=== PATIENT | female | born 1970 | race Caucasian/White ===

== ENCOUNTER 2021-09-22 20:51 | Observation (INO) ==
[2021-09-22] MEDS ORDERED: ZOFRAN 4 MG/2 ML IVP STA (21:05)
[2021-09-22] MEDS ORDERED: NITROSTAT SL STA ×2 (21:05→21:35)
[2021-09-22] MEDS ORDERED: GI COCKTAIL PO ONE (21:05)
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
[2021-09-22 21:25] LABS: BASOPHILS # (AUTO) 0.1 K/uL (0-0.2); BASOPHILS % (AUTO) 0.7 % (0.0-3.0); EOSINOPHILS # (AUTO) 0.3 K/ul (0.0-0.7); EOSINOPHILS % (AUTO) 2.3 % (0.0-7.0); HEMATOCRIT 41.1 % (37.0-47.0); HEMOGLOBIN 13.6 g/dl (12.0-16.0); IMMATURE GRANULOCYTE % (AUTO) 0.3 % (0.0-5.0); LYMPHOCYTES # (AUTO) 1.4 K/uL (0.60-3.4); LYMPHOCYTES % (AUTO) 12.6 (10.0-50.0); MEAN CORPUSCULAR HEMOGLOBIN 29.1 pg (27.0-31.0); MEAN CORPUSCULAR HGB CONC 33.1 (31.8-35.4); MEAN CORPUSCULAR VOLUME 87.8 fl (81.0-99.0); MONOCYTES # (AUTO) 0.7 K/uL (0.4-2.0); MONOCYTES % (AUTO) 6.4 (0-10); NEUTROPHILS # (AUTO) 8.9 K/ul (2.0-6.9); NEUTROPHILS % (AUTO) 77.7 % (42.2-75.2); PLATELET COUNT 273 10^3/uL (140-440); RED BLOOD COUNT 4.68 10^6/ul (4.20-5.40); WHITE BLOOD COUNT 11.47 K/ul (4.6-10.2)
[2021-09-22 21:35] LABS: ALKALINE PHOSPHATASE 110.4 U/L (38-126); BILIRUBIN,TOTAL 0.46 mg/dL (0.2-1.3); BLOOD UREA NITROGEN 13.8 mg/dL (7-17); CALCIUM 9.44 mg/dL (8.4-10.2); CARBON DIOXIDE 30.5 mmol/L (22-30.0); CHLORIDE 98.5 mmol/L (98-107); CREATINE KINASE 64.8 U/L (30-135); CREATININE 1.06 mg/dL (0.60-1.30); GLUCOSE 137.6 mg/dL (74-106); POTASSIUM 4.24 mmol/L (3.5-5.1); SODIUM 138.4 mmol/L (134.5-145); TOTAL PROTEIN 8.09 g/dL (6.3-8.2)
[2021-09-22 21:47] LABS: TROPONIN I < 0.012 ng/ml (0.0000-0.120)
[2021-09-22] MEDS: SODIUM CHLORIDE 1,000 ML IV STA (21:47)
--- NOTE | 2021-09-22 22:04 | DI ---
EXAM: Frontal view of the chest HISTORY: Chest pain COMPARISON: 12/31/2013 FINDINGS: Elevation of the right hemidiaphragm is identified. There is now a prominent right basilar opacity. No pneumothorax is seen. The cardiomediastinal silhouette is stable. Operative changes of the thor acic spine are identified. IMPRESSION: Prominent right basilar opacity which could represent a combination of consolidation, atelectasis and possibly pleural effusion. CT could be considered for more definitive evaluation.
--- NOTE | 2021-09-22 23:37 | CT ---
EXAM: CT chest without intravenous contrast 09/22/2021. Sagittal and coronal reformatted images obt ained HISTORY: Shortness of breath COMPARISON: 09/22/2021 FINDINGS: The heart size appears within normal limits. No pericardial effusion. Elevation of the r ight diaphragm with overlying compressive atelectasis. Subsegmental atelectasis within the right middle and left lower lobe. No pleural effusion. No pneumothorax. No pathologic appearing lymphadenopathy. Small hiata l hernia. Hepatic steatosis post cholecystecto my. Post kyphoplasty change of 88. Posterior fusion at T7-T9. IMPRESSION: 1. Elevation of the right diaphragm with compressive atelectasis. 2. Multifocal subsegmental atelectasis. 3. Hepatic steatosis post cholecystectomy. 4. Small hiatal hernia. All CT scans are performed using dose optimization techniques as appropriate to the performed exam an d include at least one of the following: Automated exposure control, adjustment of the mA and/or kV according t o size, and the use of iterative reconstruction technique.
[2021-09-23] MEDS ORDERED: NITROSTAT SL PRN (00:32)
[2021-09-23] MEDS ORDERED: TYLENOL PO PRN (00:32)
[2021-09-23] MEDS ORDERED: ATROPINE SULFATE PFS IVP PRN (00:32)
[2021-09-23] MEDS ORDERED: LOVENOX SUBCUT ONE (00:40)
[2021-09-23] MEDS: SODIUM CHLORIDE 1,000 ML IV STA (01:33)
[2021-09-23 01:55] VITALS: BMI 40.9
[2021-09-23] MEDS: MORPHINE 2 MG/ML VIAL IVP PRN ×5 (02:04→23:35)
[2021-09-23 05:41] LABS: BASOPHILS # (AUTO) 0.1 K/uL (0-0.2); BASOPHILS % (AUTO) 1.1 % (0.0-3.0); EOSINOPHILS # (AUTO) 0.3 K/ul (0.0-0.7); EOSINOPHILS % (AUTO) 3.3 % (0.0-7.0); HEMATOCRIT 40.6 % (37.0-47.0); HEMOGLOBIN 12.8 g/dl (12.0-16.0); IMMATURE GRANULOCYTE # (AUTO) 0.1 (0.0-1.0); IMMATURE GRANULOCYTE % (AUTO) 0.6 % (0.0-5.0); LYMPHOCYTES # (AUTO) 1.2 K/uL (0.60-3.4); LYMPHOCYTES % (AUTO) 13.9 (10.0-50.0); MEAN CORPUSCULAR HEMOGLOBIN 29.2 pg (27.0-31.0); MEAN CORPUSCULAR HGB CONC 31.5 (31.8-35.4); MEAN CORPUSCULAR VOLUME 92.5 fl (81.0-99.0); MONOCYTES # (AUTO) 0.6 K/uL (0.4-2.0); MONOCYTES % (AUTO) 7.4 (0-10); NEUTROPHILS # (AUTO) 6.2 K/ul (2.0-6.9); NEUTROPHILS % (AUTO) 73.7 % (42.2-75.2); PLATELET COUNT 228 10^3/uL (140-440); RDW COEFFICIENT OF VARIATION 14.1 % (11.6-14.8); RED BLOOD COUNT 4.39 10^6/ul (4.20-5.40); WHITE BLOOD COUNT 8.43 K/ul (4.6-10.2)
[2021-09-23 05:53] LABS: ALANINE AMINOTRANSFERASE 34.7 U/L (0-35); ALBUMIN 4.03 g/dL (3.5-5.0); ALKALINE PHOSPHATASE 98.1 U/L (38-126); BILIRUBIN,TOTAL 0.48 mg/dL (0.2-1.3); BLOOD UREA NITROGEN 12.8 mg/dL (7-17); CALCIUM 8.57 mg/dL (8.4-10.2); CARBON DIOXIDE 24.9 mmol/L (22-30.0); CHLORIDE 102.9 mmol/L (98-107); CREATINE KINASE 82.8 U/L (30-135); CREATININE 0.92 mg/dL (0.60-1.30); GLUCOSE 112.2 mg/dL (74-106); POTASSIUM 3.66 mmol/L (3.5-5.1); SODIUM 135.8 mmol/L (134.5-145); TOTAL PROTEIN 7.18 g/dL (6.3-8.2)
[2021-09-23 06:05] LABS: TROPONIN I < 0.012 ng/ml (0.0000-0.120)
[2021-09-23] MEDS: ROBAXIN PO SCH ×3 (08:19→20:37)
[2021-09-23] MEDS: ASPIRIN EC PO SCH (08:19)
[2021-09-23] MEDS: NEURONTIN PO SCH ×3 (08:20→20:37)
[2021-09-23] MEDS: SYNTHROID PO SCH (08:27)
[2021-09-23] MEDS ORDERED: SYNTHROID PO SCH (09:00)
[2021-09-23 09:24] LABS: CREATINE KINASE 89.5 U/L (30-135)
[2021-09-23 09:48] LABS: TROPONIN I < 0.012 ng/ml (0.0000-0.120)
--- NOTE | 2021-09-23 09:59 | PCM.CONS ---
CONSULTING PROVIDER: Dr. MARILIA PALACIO ATTENDING PROVIDER: Dr. JAKY PEREZ MD DATE OF SERVICE: 09/23/21 SUBJECTIVE: This 51 year old /WHITE F was hospitalized 09/23/21. She is was seen on consultation because of chest pain. The patient said feels like little man like me sitting on her chest since 3 this morning. Associated shortness of breath. Patient doesn't have history of coronary artery disease, cath done [place] [address] Antonio which was negative for significant blocked arteries. The patient has lupus and was advised to be careful with angina type of symptoms mentioned by Dr. White, she hasn't seen him since 2019. Does have regular primary says being see physician by telehealth. Just moved into area a week ago. She is familiar with this area. So far EKG and Telemetry is negative. REVIEW OF SYSTEMS: CONSTITUTIONAL: No night sweats. No fatigue, malaise, lethargy. No fever or chills. HEENT: Eyes: No visual changes. No eye pain. No eye discharge. ENT: No runny nose. No epistaxis. No sinus pain. No odynophagia. No congestion. RESPIRATORY: No cough, no congestion. No hemoptysis. No shortness of breath. CARDIOVASCULAR: No angina symptoms. No CHF symptoms. No atypical chest pain for CAD. No palpitations. No orthopnea. GASTROINTESTINAL: No abdominal pain. No nausea or vomiting. No diarrhea or constipation. No hematemesis. No hematochezia. GENITOURINARY: No urgency. No frequency. No dysuria. No hematuria. No obstructive symptoms. No discharge. No pain. No significant abnormal bleeding. MUSCULOSKELETAL: No musculoskeletal pain; no joint swelling. NEUROLOGICAL: Awake, alert, oriented to time, place and person. No headache. No neck pain. No syncope. No seizures. No dizziness. PSYCHIATRIC: Not anxious. No depression. No suicidal thoughts. No homicidal thoughts. SKIN: No rash. No lesions. No wounds. ENDOCRINE: No unexplained weight loss. No weight gain. HEMATOLOGIC/LYMPHATIC: No anemia. No purpura. No petechiae. No prolonged or excessive bleeding. No palpable lymph nodes. PHYSICAL EXAMINATION: GENERAL: The patient is awake, alert and oriented, sitting in bed in no distress. VITAL SIGNS: Temperature 97.3 F, Pulse 83, Respiratory Rate 18, BP 159/97, Pulse Ox 97% HEENT: Head normocephalic, atraumatic. Eyes: Extraocular muscles are intact. Pupils are equal, round and reactive to light and accommodation. Ears: No lesions. Nose appeared normal. Throat: No exudate or erythema. NECK: Supple. No JVD, no carotid bruit. No lymphadenopathy or thyromegaly. LUNGS: Clear to auscultation. Percussion note normal. Chest symmetrical. HEART: S1, S2, no S3. No murmurs. No cyanosis or clubbing. No ascites. Pulses: Dorsalis pedis and posterior tibial pulses +1 to +2 both sides. No chest pain at present time. ABDOMEN: Soft. Non-tender. Bowel sounds active. No CVA tenderness. No mass felt. EXTREMITIES: No edema. Full range of motion of all extremities, equal. NEUROLOGIC: No focal deficit. Cranial nerves II through XII are grossly intact. No headache, no double vision or headache. SKIN: Warm and dry. Intact. Turgor-normal. LYMPHATIC: No palpable lymph nodes/no lymphedema. MUSCULOSKELETAL: Normal joints with no swelling. Muscle tone is normal. LAB REVIEW: 09/23/21 05:32 09/23/21 05:32 09/23/21 05:32: Sodium 135.8, Potassium 3.66, Chloride 102.9, Carbon Dioxide 24.9, Anion Gap 11.66, BUN 12.8, Creatinine 0.92, Estimated GFR (MDRD) 64.00, BUN/Creatinine Ratio 13.91, Glucose 112.2 H, Calcium 8.57, Total Bilirubin 0.48, AST 27.0, ALT 34.7, Alkaline Phosphatase 98.1, Total Creatine Kinase 82.8, Troponin I < 0.012, Total Protein 7.18, Albumin 4.03, Globulin 3.15, Albumin/Globulin Ratio 1.27 09/23/21 05:32: WBC 8.43, RBC 4.39, Hgb 12.8, Hct 40.6, MCV 92.5, MCH 29.2, MCHC 31.5 L, RDW Coeff of Tc 14.1, Plt Count 228, Immature Gran % (Auto) 0.6, Neut % (Auto) 73.7, Lymph % (Auto) 13.9, [place] % (Auto) 7.4, Eos % (Auto) 3.3, Baso % (Auto) 1.1, Neut # (Auto) 6.2, Lymph # (Auto) 1.2, [place] # (Auto) 0.6, Eos # (Auto) 0.3, Baso # (Auto) 0.1, Immature Gran # (Auto) 0.1 09/23/21 01:00: SARS-CoV-2 Ag (Rapid) Negative 09/22/21 23:21: Troponin I < 0.012 09/22/21 21:18: Sodium 138.4, Potassium 4.24, Chloride 98.5, Carbon Dioxide 30.5 H, Anion Gap 13.64, BUN 13.8, Creatinine 1.06, Estimated GFR (MDRD) 54.00, BUN/Creatinine Ratio 13.01, Glucose 137.6 H, Calcium 9.44, Total Bilirubin 0.46, AST 29.0, ALT 38.0 H, Alkaline Phosphatase 110.4, Total Creatine Kinase 64.8, Troponin I < 0.012, Total Protein 8.09, Albumin 4.60, Globulin 3.49, Albumin/Globulin Ratio 1.31 09/22/21 21:18: WBC 11.47 H, RBC 4.68, Hgb 13.6, Hct 41.1, MCV 87.8, MCH 29.1, MCHC 33.1, RDW Coeff of Tc 14.0, Plt Count 273, Immature Gran % (Auto) 0.3, Neut % (Auto) 77.7 H, Lymph % (Auto) 12.6, [place] % (Auto) 6.4, Eos % (Auto) 2.3, Baso % (Auto) 0.7, Neut # (Auto) 8.9 H, Lymph # (Auto) 1.4, [place] # (Auto) 0.7, Eos # (Auto) 0.3, Baso # (Auto) 0.1, Immature Gran # (Auto) 0.0 ASSESSMENT: 1. Chest pain by history consistent with coronary insufficiency so fare negative cardiac markers, EKG and telemetry 2. Obesity 3. History of hypertension 4. Lipid profile unknown 5. Hypothyroidism Please see below. RECOMMENDATIONS/PLAN: 1. The patient is taking thyroid supplements only medication she is taking as she is unable to afford. Off all other medications at this time. 2. Echo 3. CT angiogram to rule out PE 4. Dobutamine stress echo 5. Will get cath report from [facility] from Dr. Prakash. Plan and coordination of the patient's care discussed in the presence of Sail Cutter and Nurse. CONDITION: Stable at present time. Case discussed with hospitalist. SCRIBED BY: CARLOS VARGAS Appeals Board Referee scribed while in presence of service performed by Dr. MARILIA PALACIO on 09/23/21 ([id number])
[2021-09-23 10:17] LABS: CHOLESTEROL 256.3 mg/dL (0-200); HDL CHOLESTEROL 26.7 mg/dL (35-80); TRIGLYCERIDES 506.7 mg/dL (0-150)
[2021-09-23 10:42] LABS: ERYTHROCYTE SEDIMENTATION RATE 26 mm/hr (0-20)
--- NOTE | 2021-09-23 10:48 | PCM.PROG ---
Date Seen by Provider: 09/23/21 Time Seen by Provider: 10:42 Subjective: pt continues off and on chest pain relieved by SL nitro, gi cocktail w/o effect, awaits Dr Trevino Cardiology eval for stress test and echo, labs pending for pt/ptt and ddimer, hx dye allergy, lupus, home oxygen prn, obesity, asthma, daily aspirin, and covid vaccine, +cad family hx, no hx smoking or htn Objective: Vitals: T=97.3 F, P=83, R=18, VO=686/97, SPO2=97% HEENT: []conjunctiva clear Neck: []supple Lungs: [] clear to aus CVS: []RRR Abdomen: []nondistended Extremities: []santos Neurological: []alert w/ fluent speech Skin: []pink Lab/Tests/Diagnostic Imaging: []serial troponins not elevated, chest ct shows atelec Plan: monitor chest pain, eval labs and echo and stress test care to Dr Springer at 19:00
[2021-09-23 11:12] LABS: PARTIAL THROMBOPLASTIN TIME 27.1 SEC (23.9-40.0); PROTHROMBIN TIME 10.1 SEC (9.3-11.0)
[2021-09-23] MEDS ORDERED: DOBUTAMINE 500 MG-D5W 250 ML 500 MG/250 ML BAG IV ONE (11:42)
[2021-09-23] MEDS ORDERED: DOBUTAMINE 500 MG-D5W 250 ML 500 MG/250 ML BAG IV SCH (12:13)
[2021-09-23] MEDS ORDERED: DECADRON IM ONE (13:23)
--- NOTE | 2021-09-23 13:31 | DOBSTECHO ---
Date of Test: 09/23/2021 Ordering Physician: HOSPITALIST--CHRIS Smoking History: NONE Reason for Examination: CHEST PAIN, HEART CATH 2017, MITRAL VALVE STENOSIS Current Medications: SYNTHROID, NEURONTIN, ROBAXIN Height: 68" Weight: 269 LBS Target Heart Rate: 142/168 S-T Segment Stage Time HR BPM BP MMHG Rhythm +/- Elevation Depression Symptoms Control Sitting 76 118/72 SR X NONE Dobutamine 250mg/D5W 5mcg/KG/mn 10mcg/KG/mn 3" 96 132/68 SR X NONE 15mcg/KG/mn 1:02 129 SR X POST NECK PAIN 20mcg/KG/mn 25mcg/KG/mn 30mcg/KG/mn 35mcg/KG/mn 40mcg/KG/mn 3" MIN POST INFUSION 116 138/54 SR X PAIN ALMOST SUBSIDED 6" MIN POST INFUSION 15 95 84 118/60 120/70 SR SR X X NONE NONE DURATION OF INFUSION 4:02 MAXIMUM HEART RATE REACHED 129 BPM 92% OXYGEN SATURATION ON ROOM AIR Interpretation: 1. NO EVIDENCE OF ISCHEMIA BY ST-T WAVE FROM HEART RATE 76 BPM AT REST TO 129 BPM WITH DOBUTAMINE INFUSION 2. POST NECK PAIN LIKE MUSCLE SPASM WHICH SUBSIDED WITH GOOD SUPPORT TO THE NECK WITH PILLOW 3. NO CHEST PAIN OR DISCOMFORT OR SWEATS OR SHORTNESS OF BREATH 4. NO ARRHYTHMIAS NORMAL LEFT VENTRICLE CONTRACTILITY--RESTING AND WITH DOBUTAMINE INFUSION MTDD
--- NOTE | 2021-09-23 13:34 | ECHOSTRESS ---
Date of Exam: 09/23/2021 Ordering Physician: HOSPITALIST- DR. PEREZ Reason for Echo: CHEST PAIN, DOBUTAMINE STRESS TEST--NO ISCHEMIA M-Mode Normal Adult Results LV Dimensions Normal Adult Results AoV Opening excursions >1.6 LVEDD-base- 3.5-5.8 Ao root dimensions 2.0-3.7 LVESD-base- 3.1-4.6 L. Atrium dimensions 1.9-3.8 Post. Wall thickness 0.8-1.1 IV septum (thickness) 0.7-1.2 Post. Wall excursion 0.72-1.3 Septal motion Systolic motion R. Ventricular cavity 1.5-2.0 LVEF 60% Paradoxical septal wall motion 2-D: NORMAL LEFT VENTRICLE CONTRACTILITY--RESTING AND WITH DOBUTAMINE INFUSION M-MODE: MV: AV: TV: PV: CHAMBER SIZE: WALL MOTION: NORMAL LEFT VENTRICLE CONTRACTILITY--RESTING AND WITH DOBUTAMINE INFUSION PERICARDIUM: INTERPRETATION: 1. NORMAL LEFT VENTRICLE CONTRACTILITY--RESTING AND WITH DOBUTAMINE INFUSION MTDD
[2021-09-23] MEDS: COREG PO SCH ×2 (13:35→17:16)
[2021-09-23] MEDS: PROTONIX PO SCH ×2 (13:35→17:16)
--- NOTE | 2021-09-23 13:39 | ECHO2D ---
Date of Exam: 09/23/2021 Ordering Physician: HOSPITALIST--DR. PEREZ Room #: OP Reason for Echo: CHEST PAIN M-Mode Normal Adult Results LV Dimensions Normal Adult Results AoV Opening excursions >1.6 >1.6 LVEDD-base- 3.5-5.8 4.7 Ao root dimensions 2.0-3.7 3.6 LVESD-base- 3.1-4.6 L. Atrium dimensions 1.9-3.8 4.4 Post. Wall thickness 0.8-1.1 1.2 IV septum (thickness) 0.7-1.2 1.2 Post. Wall excursion 0.72-1.3 NORMAL Septal motion NORMAL Systolic motion R. Ventricular cavity 1.5-2.0 NORMAL LVEF 60% 56% Paradoxical septal wall motion NORMAL 2-D : 2-D M Mode Echocardiogram was performed using apical four chamber and left parasternal long and short axis views. Mitral, tricuspid and aortic valves appear to be normal. Contractility of the left ventricle seems to be normal, so is the cavity size. ENLARGED LEFT ATRIAL CAVITY SIZE. Aortic root appears to be normal. There is no pericardial effusion. There is no thrombus noted in the left ventricle or left atrial cavity. M-MODE: MV: NORMAL AV: NORMAL TV: NORMAL PV: CHAMBER SIZE: ENLARGED LEFT ATRIAL CAVITY WALL MOTION: NORMAL PERICARDIUM: NORMAL INTERPRETATION: 1. LEFT VENTRICLE HYPERTROPHY WITH ENLARGED LEFT ATRIAL CAVITY 2. NORMAL LEFT VENTRICLE CONTRACTILITY 3. NORMAL VALVES MTDD
[2021-09-23] MEDS: NYSTOP POWDER TP SCH (20:53)
[2021-09-23 21:21] LABS: BILIRUBIN,URINE Negative (NEGATIVE); CLARITY,URINE Clear (CLEAR); COLOR,URINE Yellow (YELLOW); GLUCOSE, URINE (UA) Negative (NEGATIVE); KETONES,URINE Negative (NEGATIVE); LEUKOCYTE ESTERASE ,URINE Negative (NEGATIVE); NITRITE,URINE Negative (NEGATIVE); PROTEIN,URINE Negative (NEGATIVE); URINE, BLOOD Negative (NEGATIVE); UROBILINOGEN,URINE 0.2 (0.2)
[2021-09-24] MEDS ORDERED: ATIVAN PO STA (00:58)
[2021-09-24] MEDS: MORPHINE 2 MG/ML VIAL IVP PRN ×2 (04:55→08:48)
[2021-09-24 05:20] LABS: BASOPHILS # (AUTO) 0.1 K/uL (0-0.2); BASOPHILS % (AUTO) 0.7 % (0.0-3.0); EOSINOPHILS % (AUTO) 0.3 % (0.0-7.0); HEMATOCRIT 37.3 % (37.0-47.0); HEMOGLOBIN 12.3 g/dl (12.0-16.0); IMMATURE GRANULOCYTE % (AUTO) 0.5 % (0.0-5.0); LYMPHOCYTES # (AUTO) 0.8 K/uL (0.60-3.4); LYMPHOCYTES % (AUTO) 9.5 (10.0-50.0); MEAN CORPUSCULAR HEMOGLOBIN 29.6 pg (27.0-31.0); MEAN CORPUSCULAR VOLUME 89.7 fl (81.0-99.0); MONOCYTES # (AUTO) 0.5 K/uL (0.4-2.0); MONOCYTES % (AUTO) 5.5 (0-10); NEUTROPHILS # (AUTO) 7.2 K/ul (2.0-6.9); NEUTROPHILS % (AUTO) 83.5 % (42.2-75.2); PLATELET COUNT 241 10^3/uL (140-440); RDW COEFFICIENT OF VARIATION 13.8 % (11.6-14.8); RED BLOOD COUNT 4.16 10^6/ul (4.20-5.40); WHITE BLOOD COUNT 8.66 K/ul (4.6-10.2)
[2021-09-24] MEDS: PROTONIX PO SCH ×2 (05:31→17:14)
[2021-09-24] MEDS: SYNTHROID PO SCH (05:32)
[2021-09-24 05:33] LABS: ALANINE AMINOTRANSFERASE 42.4 U/L (0-35); ALBUMIN 4.11 g/dL (3.5-5.0); ASPARTATE AMINO TRANSFERASE 31.8 U/L (14-36); BILIRUBIN,TOTAL 0.48 mg/dL (0.2-1.3); CALCIUM 9.07 mg/dL (8.4-10.2); CARBON DIOXIDE 28.7 mmol/L (22-30.0); CHLORIDE 102.1 mmol/L (98-107); CREATININE 0.78 mg/dL (0.60-1.30); GLUCOSE 137.7 mg/dL (74-106); POTASSIUM 4.9 mmol/L (3.5-5.1); SODIUM 136.6 mmol/L (134.5-145); TOTAL PROTEIN 7.2 g/dL (6.3-8.2)
[2021-09-24] MEDS: NYSTOP POWDER TP SCH ×2 (08:36→21:51)
[2021-09-24] MEDS: ASPIRIN EC PO SCH (08:36)
[2021-09-24] MEDS: NEURONTIN PO SCH ×3 (08:37→21:51)
[2021-09-24] MEDS: COREG PO SCH ×2 (08:37→17:14)
[2021-09-24] MEDS: ROBAXIN PO SCH ×3 (08:37→21:50)
[2021-09-24] MEDS ORDERED: ULTRAM PO SCH (10:00)
[2021-09-24] MEDS ORDERED: ULTRAM PO PRN (10:02)
--- NOTE | 2021-09-24 11:51 | PCM.PROG ---
Date Seen by Provider: 09/24/21 Time Seen by Provider: 11:00 Subjective: Resting in bed watching TV. She reports Some vague non angina muscle aches. So new symptoms. Objective: Vitals: T=98.4 F, P=84, R=18, UH=800/95, SPO2=95 HEENT: [speech normal ,no icterus , ] Neck: [No thyroid enlargement ] Lungs: [clear ] CVS: [regular ] Abdomen: [soft ] Extremities: [FROM, no edema ] Neurological: [alert oriented times three ] Skin: [no rash ] Lab/Tests/Diagnostic Imaging: [ glucose 137 , echo 59 % EF, some L ventricle hypertrophy and left atrium enlargment and , Dobutamine ST neg , TSH 50 - alt 42( 35) , wbc 8.6,hgb 12, ptl 241,Dimer 377, troponin negative today ] Plan: 1.DVT - Resume daily lovenox 40mg SQ 2.Continue Synthroid as pt just restarted this dose with this admission after pt stopped taking 3.Incentive spirometry for atelectasis - discussed with RT 4. GI - omeprazole 40mg po daily 5.Discussed with Dr. Trevino - plan is to keep in hospital today - he is awaiting cardiac cath results from 2017 @ [facility] , with dobutamine stress negative no plans to transfer over weekend for urgent cath. 6.Trial of duoneb ( prior smoker ) 7. Add A1C due to elevated glucose 8. No statin due to Thyroid - discussed with Dr Trevino 9. Plan for three way RT evaluation the day of discharge 10.disposition plans to be discussed Sunday with daytime ED -hospitalist and Dr. Trevino 11. No PE study as dimer negative and pt allergic to IV dye - discussed with Dr. Trevino
[2021-09-24] MEDS: LOVENOX SUBCUT SCH (12:55)
[2021-09-24] MEDS: DUONEB NEB PRN (14:37)
[2021-09-24] MEDS: PRILOSEC PO SCH (17:14)
[2021-09-25] MEDS: PRILOSEC PO SCH (05:38)
[2021-09-25] MEDS: SYNTHROID PO SCH (05:38)
[2021-09-25] MEDS: PROTONIX PO SCH ×2 (05:38→16:00)
[2021-09-25 06:31] LABS: BASOPHILS # (AUTO) 0.1 K/uL (0-0.2); EOSINOPHILS # (AUTO) 0.4 K/ul (0.0-0.7); HEMATOCRIT 38.1 % (37.0-47.0); HEMOGLOBIN 12.3 g/dl (12.0-16.0); IMMATURE GRANULOCYTE % (AUTO) 0.4 % (0.0-5.0); LYMPHOCYTES # (AUTO) 1.4 K/uL (0.60-3.4); LYMPHOCYTES % (AUTO) 18.8 (10.0-50.0); MEAN CORPUSCULAR HEMOGLOBIN 29.4 pg (27.0-31.0); MEAN CORPUSCULAR HGB CONC 32.3 (31.8-35.4); MEAN CORPUSCULAR VOLUME 91.1 fl (81.0-99.0); MONOCYTES # (AUTO) 0.4 K/uL (0.4-2.0); NEUTROPHILS # (AUTO) 5.1 K/ul (2.0-6.9); NEUTROPHILS % (AUTO) 68.8 % (42.2-75.2); PLATELET COUNT 240 10^3/uL (140-440); RDW COEFFICIENT OF VARIATION 14.2 % (11.6-14.8); RED BLOOD COUNT 4.18 10^6/ul (4.20-5.40); WHITE BLOOD COUNT 7.35 K/ul (4.6-10.2)
[2021-09-25 06:45] LABS: BLOOD UREA NITROGEN 14.8 mg/dL (7-17); CALCIUM 9.04 mg/dL (8.4-10.2); CARBON DIOXIDE 29.9 mmol/L (22-30.0); CHLORIDE 100.3 mmol/L (98-107); CREATININE 0.89 mg/dL (0.60-1.30); GLUCOSE 113.1 mg/dL (74-106); POTASSIUM 4.33 mmol/L (3.5-5.1); SODIUM 136.5 mmol/L (134.5-145)
[2021-09-25] MEDS: NYSTOP POWDER TP SCH ×2 (08:59→20:35)
[2021-09-25] MEDS: ASPIRIN EC PO SCH (09:02)
[2021-09-25] MEDS: ROBAXIN PO SCH ×3 (09:02→20:35)
[2021-09-25] MEDS: NEURONTIN PO SCH ×3 (09:02→20:35)
[2021-09-25] MEDS: COREG PO SCH ×2 (09:02→16:00)
[2021-09-25] MEDS: LOVENOX SUBCUT SCH (09:03)
[2021-09-25] MEDS ORDERED: BENADRYL PO PRN (11:18)
--- NOTE | 2021-09-25 11:28 | PCM.PROG ---
Date Seen by Provider: 09/25/21 Time Seen by Provider: 11:25 Subjective: pt improved, pain free, wants benadryl for her nerves, pt is currently homeless, family won't take her in Objective: Vitals: T=96.9 F, P=81, R=16, EG=991/90, SPO2=94 HEENT: []conjunctiva clear Neck: []supple Lungs: [] no respiratory distress CVS: []RRR Abdomen: []nondistended Extremities: []santos Neurological: []alert and oriented x 3 Skin: []pink Lab/Tests/Diagnostic Imaging: [] Plan: treatment and disposition d/w Dr Trevino for neuromuscular pain, awaits case management for disposition
[2021-09-25] MEDS: DUONEB NEB PRN (14:06)
[2021-09-26] MEDS: SYNTHROID PO SCH (05:38)
[2021-09-26] MEDS: PROTONIX PO SCH ×2 (05:38→17:00)
[2021-09-26] MEDS: PRILOSEC PO SCH (05:38)
[2021-09-26 05:47] LABS: BASOPHILS % (AUTO) 0.4 % (0.0-3.0); EOSINOPHILS # (AUTO) 0.3 K/ul (0.0-0.7); EOSINOPHILS % (AUTO) 4.7 % (0.0-7.0); HEMATOCRIT 36.4 % (37.0-47.0); HEMOGLOBIN 11.8 g/dl (12.0-16.0); IMMATURE GRANULOCYTE # (AUTO) 0.1 (0.0-1.0); IMMATURE GRANULOCYTE % (AUTO) 0.7 % (0.0-5.0); LYMPHOCYTES # (AUTO) 1.2 K/uL (0.60-3.4); LYMPHOCYTES % (AUTO) 16.4 (10.0-50.0); MEAN CORPUSCULAR HGB CONC 32.4 (31.8-35.4); MEAN CORPUSCULAR VOLUME 89.4 fl (81.0-99.0); MONOCYTES # (AUTO) 0.5 K/uL (0.4-2.0); MONOCYTES % (AUTO) 7.4 (0-10); NEUTROPHILS % (AUTO) 70.4 % (42.2-75.2); PLATELET COUNT 217 10^3/uL (140-440); RDW COEFFICIENT OF VARIATION 13.9 % (11.6-14.8); RED BLOOD COUNT 4.07 10^6/ul (4.20-5.40); WHITE BLOOD COUNT 7.03 K/ul (4.6-10.2)
[2021-09-26 05:59] LABS: BLOOD UREA NITROGEN 11.5 mg/dL (7-17); CALCIUM 8.84 mg/dL (8.4-10.2); CARBON DIOXIDE 33.7 mmol/L (22-30.0); CHLORIDE 98.4 mmol/L (98-107); CREATININE 1.01 mg/dL (0.60-1.30); GLUCOSE 130.7 mg/dL (74-106); POTASSIUM 4.25 mmol/L (3.5-5.1); SODIUM 138.1 mmol/L (134.5-145)
[2021-09-26] MEDS: ROBAXIN PO SCH ×3 (09:18→20:47)
[2021-09-26] MEDS: LOVENOX SUBCUT SCH (09:19)
[2021-09-26] MEDS: COREG PO SCH ×2 (09:20→17:00)
[2021-09-26] MEDS: NEURONTIN PO SCH ×3 (09:20→20:47)
[2021-09-26] MEDS: ASPIRIN EC PO SCH (09:20)
[2021-09-26] MEDS: NYSTOP POWDER TP SCH ×2 (09:21→20:49)
--- NOTE | 2021-09-26 11:46 | CONS ---
DATE OF SERVICE: 09/24/21 CONSULT FOLLOWUP SUBJECTIVE: 51 year old white female hospitalized with chest pain. The patient's chest pain continues as was described by her the middle of the chest going through to the back going to the thoracic and cervical spine area constant dull ache. The patient is being given Morphine sulfate intermittently. She is allergic to most of the nonsteroidal antiinflammatory according to her. The patient's chest pain is not associated with any shortness of breath or sweating. Changes in the ST-T wave on telemetry noted and EKG this morning. Troponin normal. REVIEW OF SYSTEMS: CONSTITUTIONAL: No night sweats. No fatigue, malaise, lethargy. No fever or chills. The patient looks very comfortable. HEENT: Eyes: No visual changes. No eye pain. No eye discharge. ENT: No runny nose. No epistaxis. No sinus pain. No sore throat. No odynophagia. No ear pain. No congestion. RESPIRATORY: No cough, no congestion. No hemoptysis. CARDIOVASCULAR: No angina symptoms. No CHF symptoms. No atypical chest pain for CAD. No palpitations. No shortness of breath. GASTROINTESTINAL: No abdominal pain. No nausea or vomiting. No diarrhea or constipation. No hematemesis. No hematochezia. GENITOURINARY: No urgency. No frequency. No dysuria. No hematuria. No obstructive symptoms. No discharge. No pain. No significant abnormal bleeding. MUSCULOSKELETAL: No musculoskeletal pain. No joint swelling. No arthritis. NEUROLOGICAL: No headache. No neck pain. No syncope. No seizures. No dizziness. PSYCHIATRIC: Not anxious. No depression. No suicidal thoughts. No homicidal thoughts. SKIN: No rash. No lesions. No wounds. ENDOCRINE: No unexplained weight loss. No weight gain. HEMATOLOGIC/LYMPHATIC: No anemia. No purpura. No petechiae. No prolonged or excessive bleeding. No palpable lymph nodes. PHYSICAL EXAMINATION: VITAL SIGNS: Temperature 98.4, pulse 84, respiratory rate 18, blood pressure 140/95 and pulse ox 97% HEENT: Head normocephalic, atraumatic. Eyes: Extraocular muscles are intact. Pupils are equal, round and reactive to light and accommodation. Ears: No lesions. Nose appeared normal. Throat: No exudate or erythema. NECK: Supple. No JVD, no carotid bruit. No lymphadenopathy or thyromegaly. LUNGS: Decreased breath sounds but clear to auscultation. Percussion note normal. Chest symmetrical. HEART: S1, S2, no S3. No murmur. No cyanosis or clubbing. No ascites. Pulses: Dorsalis pedis and posterior tibial pulses +1 to +2 bilaterally. ABDOMEN: Soft. Nontender. Bowel sounds active. No CVA tenderness. No mass felt. EXTREMITIES: No edema. Full range of motion of all extremities, equal. NEUROLOGIC: No focal deficit. Cranial nerves II through XII are grossly intact. No headache, no double vision or headache. SKIN: Not dry. Intact. Turgor - normal. LYMPHATIC: No palpable lymph nodes/no lymphedema. MUSCULOSKELETAL: Normal joints with no swelling. Muscle tone is normal. LABS: HGb 12.3, hct 37, WBC 8,600 normal differential, creatinine 0.7, BUN 13, potassium 4.9 ASSESSMENT: 1. Chest pain seems to be noncardiac. More musculoskeletal and muscle spasm. 2. Morbid obesity 3. Severe dyslipidemia, untreated because of the patient's noncompliance 4. Hypothyroidism 5. Borderline hypertension RECOMMENDATIONS: 1. Increase to Coreg to 6.25mg PO twice a day 2. Continue coated aspirin 3. Continue Synthroid 4. Lanoxin 150mcg 5. Counseling for diet done to lose weight. 6. Counseling for increase lipid level done 7. We will treat the lipid level at present time because of hypothyroidism. Treated in 10 days after rechecking her thyroid. 8. The patient so far has serial EKGS, cardiac markers and they are all negative. Dobutamine stress echo from resting heart rate of 74 to heart rate of 126 with Dobutamine infusion. Not shown any sign of ST-T wave change or ischemia. The patient's echocardiogram at rest and with Dobutamine infusion was normal. The patient's resting Echo showed LVH with enlarged LA cavity with normal LV contractility. 9. The patient's problems are she is more or less homeless. She is unreliable. She indicated that she didn't have any money to buy any medications. The patient does not have any doctor. Advised to get a primary doctor. The patient is going to have a followup with the [facility] at 10:30 on Sunday. The patient's case discussed with Hospitalist Dr. Hutson. [facility]
--- NOTE | 2021-09-26 15:39 | PCM.PROG ---
Date Seen by Provider: 09/26/21 Subjective: pt with atypical chest pain hx is chest pain free, awaits Case Management arrangement for transportation Objective: Vitals: T=97.3 F, P=93, R=14, TV=554/94, SPO2=94 HEENT: []conjunctiva clear Neck: []supple Lungs: [] no respiratory distress CVS: [] normal rate Abdomen: []nondistended Extremities: []santos Neurological: []alert and oriented Skin: []pink Lab/Tests/Diagnostic Imaging: [] Plan: advised that hospital administration will provide bus fare to [place] as the pt chooses
[2021-09-26] MEDS: DUONEB NEB PRN (20:30)
[2021-09-27 05:18] VITALS: BP 117/77; TEMP 98.2
[2021-09-27] MEDS: SYNTHROID PO SCH (05:45)
[2021-09-27] MEDS: PROTONIX PO SCH (05:45)
[2021-09-27] MEDS: PRILOSEC PO SCH (05:45)
--- NOTE | 2021-09-27 07:14 | PCM.PROG ---
Date Seen by Provider: 09/27/21 Time Seen by Provider: 07:11 Subjective: pt chest pain free, eating breakfast, has no complaints Objective: Vitals: T=98.2 F, P=83, R=18, ZU=839/77, SPO2=95 HEENT: []conjunctiva clear Neck: []supple Lungs: [] no respiratory distress CVS: []RRR Abdomen: []nondistended Extremities: []santos Neurological: []speech fluent Skin: []pink Lab/Tests/Diagnostic Imaging: [] Plan: discharged home, follow up with Dr Sanchez, return if worse
--- NOTE | 2021-09-27 07:17 | PCM.DC ---
Final Diagnosis: muscular chest pain Physical Exam Appearance: Well-appearing Ill-appearing: None Pain Distress: None Eyes: Conjunctiva clear ENT: Not Examined Neck: Supple Respiratory: Airway patent Cardiovascular: RRR GI/: Other (nondistended) Musculoskeletal: ROM intact Skin: Normal color Neurological: Alert and Oriented Psychiatric: Affect appropriate (1) Muscular chest pain: Status: Acute Code(s): R07.89 - Other chest pain SNOMED Code(s): 760291225 Reason for Hospitalization: r/o cad Prognosis/Condition at Discharge: stable Medications at Discharge: Ambulatory Orders Medication Instructions Recorded gabapentin 300 mg capsule 300 mg PO TID 09/22/21 (Neurontin) levothyroxine 150 mcg tablet 150 mcg PO DAILY 09/22/21 (Synthroid) methocarbamol 500 mg tablet 500 mg PO TID 09/22/21 Lab/Diagnostics: per Dr Trevino, stress test normal Education Provided to Patient and Family: rest, tylenol, benadryl otc prn Follow-ups: Dr Sanchez Discharge Disposition: Home Hospital Course: stable Plan: see Dr Sanchez
--- NOTE | 2021-09-27 10:35 | CONS ---
DATE OF SERVICE: 09/25/21 CONSULT FOLLOWUP SUBJECTIVE: 51 year old white female was seen on consultation for chest pain on 09/23/21. The patient's condition has improved. She doesn't have any chest pain anymore according to her. The back pain is a lot better. Otherwise is feeling better. REVIEW OF SYSTEMS: CONSTITUTIONAL: No night sweats. No fatigue, malaise, lethargy. No fever or chills. HEENT: Eyes: No visual changes. No eye pain. No eye discharge. ENT: No runny nose. No epistaxis. No sinus pain. No sore throat. No odynophagia. No ear pain. No congestion. RESPIRATORY: No cough, no congestion. No hemoptysis. CARDIOVASCULAR: No angina symptoms. No CHF symptoms. No atypical chest pain for CAD. No palpitations. No shortness of breath. GASTROINTESTINAL: No abdominal pain. No nausea or vomiting. No diarrhea or constipation. No hematemesis. No hematochezia. GENITOURINARY: No urgency. No frequency. No dysuria. No hematuria. No obstructive symptoms. No discharge. No pain. No significant abnormal bleeding. MUSCULOSKELETAL: No musculoskeletal pain. No joint swelling. No arthritis. NEUROLOGICAL: No headache. No neck pain. No syncope. No seizures. No dizziness. PSYCHIATRIC: Anxious. No depression. No suicidal thoughts. No homicidal thoughts. Crying because she has no place to go. SKIN: No rash. No lesions. No wounds. ENDOCRINE: No unexplained weight loss. No weight gain. HEMATOLOGIC/LYMPHATIC: No anemia. No purpura. No petechiae. No prolonged or excessive bleeding. No palpable lymph nodes. PHYSICAL EXAMINATION: GENERAL: The patient is oriented to time, place and person. No Distress. VITAL SIGNS: Temperature 96.9, pulse 80, respiratory rate 16, blood pressure 140/90 and pulse ox 95%. HEENT: Head normocephalic, atraumatic. Eyes: Extraocular muscles are intact. Pupils are equal, round and reactive to light and accommodation. Ears: No lesions. Nose appeared normal. Throat: No exudate or erythema. NECK: Supple. No JVD, no carotid bruit. No lymphadenopathy or thyromegaly. LUNGS: Decreased breath sounds but clear to auscultation. Percussion note normal. Chest symmetrical. HEART: S1, S2, no S3. No murmur. No cyanosis or clubbing. No ascites. Pulses: Dorsalis pedis and posterior tibial pulses +1 to +2 bilaterally. ABDOMEN: Soft. Nontender. Bowel sounds active. No CVA tenderness. No mass felt. EXTREMITIES: No edema. Full range of motion of all extremities, equal. NEUROLOGIC: No focal deficit. Cranial nerves II through XII are grossly intact. No headache, no double vision or headache. SKIN: Not dry. Intact. Turgor - normal. LYMPHATIC: No palpable lymph nodes/no lymphedema. MUSCULOSKELETAL: Normal joints with no swelling. Muscle tone is normal. LABS: Troponin so far negative. EKG sinus rhythm. No acute changes ASSESSMENT: 1. Chest pain seems to be noncardiac with multiple CAD risk factors Very poorly treated for one reason or another but the patient had stopped taking the medicine as she said that she had no money to but medicines. RECOMMENDATIONS: 1. She is educated. Story changes everyday. She has no place to go. [facility] Talked to Dr. Jamil. He is authorization representative today, Hospitalist, discussed the case and he is agreeable to keep the patient here today for social reasons. The patient would be discharged Dr. Jamil said that he is going to be authorization representative tomorrow anyway. Plans for discharge will be made for tomorrow. She has followup with [facility] 10:30 that may have to be changed. Her prognosis is guarded to poor because of the patient's compliance for one reason or another. She has been thoroughly explained about coronary artery disease and risk factors and symptoms. The patient is on Coreg 6.25mg PO twice a day along with baby Aspirin. Lupus seems to be inactive at present time. Cardiovascular status is stable. MTDD
--- NOTE | 2021-09-27 10:36 | PN ---
09/23/21: Level 09/24/21: Extensive 09/25/21: Extensive. MTDD
--- NOTE | 2021-09-27 14:07 | CONS ---
DATE OF SERVICE: 09/26/21 CONSULT FOLLOWUP SUBJECTIVE: The patient was seen and examined today. The patient was seen on consultation for chest pain. The patient does not have any chest pain anymore for past days. REVIEW OF SYSTEMS: CONSTITUTIONAL: No night sweats. No fatigue, malaise, lethargy. No fever or chills. HEENT: Eyes: No visual changes. No eye pain. No eye discharge. ENT: No runny nose. No epistaxis. No sinus pain. No sore throat. No odynophagia. No ear pain. No congestion. RESPIRATORY: No cough, no congestion. No hemoptysis. CARDIOVASCULAR: No angina symptoms. No CHF symptoms. No atypical chest pain for CAD. No palpitations. No shortness of breath. GASTROINTESTINAL: No abdominal pain. No nausea or vomiting. No diarrhea or constipation. No hematemesis. No hematochezia. GENITOURINARY: No urgency. No frequency. No dysuria. No hematuria. No obstructive symptoms. No discharge. No pain. No significant abnormal bleeding. MUSCULOSKELETAL: No musculoskeletal pain. No joint swelling. No arthritis. NEUROLOGICAL: No headache. No neck pain. No syncope. No seizures. No dizziness. PSYCHIATRIC: Anxious. No depression. No suicidal thoughts. No homicidal thoughts. SKIN: No rash. No lesions. No wounds. ENDOCRINE: No unexplained weight loss. No weight gain. HEMATOLOGIC/LYMPHATIC: No anemia. No purpura. No petechiae. No prolonged or excessive bleeding. No palpable lymph nodes. PHYSICAL EXAMINATION: GENERAL: The patient is oriented to time, place and person. HEENT: Head normocephalic, atraumatic. Eyes: Extraocular muscles are intact. Pupils are equal, round and reactive to light and accommodation. Ears: No lesions. Nose appeared normal. Throat: No exudate or erythema. NECK: Supple. No JVD, no carotid bruit. No lymphadenopathy or thyromegaly. LUNGS: Clear to auscultation. Percussion note normal. Chest symmetrical. HEART: S1, S2, no S3. No murmur. No cyanosis or clubbing. No ascites. Pulses: Dorsalis pedis and posterior tibial pulses +2 bilaterally. ABDOMEN: Soft. Nontender. Bowel sounds active. No CVA tenderness. No mass felt. EXTREMITIES: No edema. Full range of motion of all extremities, equal. NEUROLOGIC: No focal deficit. Cranial nerves II through XII are grossly intact. No headache, no double vision or headache. SKIN: Not dry. Intact. Turgor - normal. LYMPHATIC: No palpable lymph nodes/no lymphedema. MUSCULOSKELETAL: Normal joints with no swelling. Muscle tone is normal. LABS: Telemetry rhythm strips examined and no ST-T wave changes noted, sinus rhythm. Oximetry more than 98% on room. air. ASSESSMENT: 1. Chest pain, noncardiac 2. Multiple risk factors for heart disease like family history, borderline hypertension, obesity, sedentary lifestyle 3. Dyslipidemia, untreated. The patient's choice. RECOMMENDATIONS: 1. The patient was ready to be discharged even yesterday but because of social problems the patient has no place to go. She has been in the hospital but the patient is cardiovascular [place] stable. 2. Until hypothyroidism treated and thyroid function are normalized shouldn't be started on Statin. May take a couple of weeks 3. Statin needs to be used for non-HDL to go down to 100, discussed with the patient and the patient says that she is [employer] 4. Weight loss diet discussed with the patient 5. The patient needs to have a primary care in the area that she could be followed. An appointment today to see primary care provider at [facility]. 6. Discussed with Retail Pharmacy Technician that the patient needs an appointment to health care provider in a couple of days. 7. If any chest pain strongly advised to go to the nearest emergency room. 8. The patient's case discussed with Hospitalist. 9. The patient is on Coreg 6.25mg PO BID may help borderline hypertension and also heart rate. Seem to be persistently high without 10. Coated Aspirin one a day advised 11. Nitroglycerin as the patient has been taking PRN CONDITION: Stable MTDD
--- NOTE | 2021-09-27 14:08 | PN ---
09/23/21: Level 5 09/24/21: Extensive 09/25/21: Extensive 09/26/21: Extensive MTDD
== END 2021-09-27 07:55 | disposition home or self-care (01) ==
LOC: MEDSURG A 20:51 → ED 20:51 → MEDSURG A 09-23 01:25
PROVIDERS: ADMIT Emergency Medicine Emergency Medical Services; ATTEND Emergency Medicine Emergency Medical Services
DX: Z20.822 Contact with and (suspected) exposure to COVID-19; E78.5 Hyperlipidemia, unspecified; E66.9 Obesity, unspecified; Z79.899 Other long term (current) drug therapy; Z91.19 Patient's noncompliance with other medical treatment and regimen; R07.89 Other chest pain